=== PATIENT | female | born 1945 ===

== ENCOUNTER 2023-10-24 14:50 | Emergency (ER) | payer BC, SELFPAY ==
[2023-10-24] VITALS (11 sets, daily range): BP systolic 122–138; BP diastolic 49–71; PULSE 34–38; RESP 16; TEMP 36.8; O2SAT 91–95; BMI 24.2
--- NOTE | 2023-10-24 15:12 | XR_ITS ---
Patient: ELADIO NIELSON Facility:?[facility] Patient ID:?[id number] Site Patient ID:?[id number]. Site :?[id number] Study:?XRay-Chest 2 VIEW-10/24/2023 3:32:07 PM Ordering Physician:?DR. DE GUZMAN Final Report: INDICATION: Shortness of breath. TECHNIQUE: Two-view chest. FINDINGS: Cardiomegaly. Blunting of the costophrenic sulci bilaterally most likely secondary to pleural effusion more on the left. No evidence of pulmonary congestion. Possible infiltrate left lung base. IMPRESSION: 1. Possible infiltrates left lung base. 2. Bilateral pleural effusion more on the left. Dictated by Khris Howard MD @ 10/24/2023 4:11:28 PM Signed by:?Khris Howard MD @10/24/2023 4:11:28 PM (Electronic Signature)
[2023-10-24 15:19] LABS: Lactate* 1.6 mmol/L (0.5-1.9)
[2023-10-24 15:21] LABS: Basophils Absolute Auto 0.02 K/uL (0.00-0.30); Basophils Percent Auto 0.4 % (0.0-3.0); Eosinophils Absolute Auto 0.02 K/uL (0.00-0.50); Eosinophils Percent Auto 0.4 % (0.0-7.0); Hematocrit 35.8 % (33.0-51.0); Hemoglobin* 11.9 gm/dL (12.0-16.0); Immature Granulocytes Abs Auto 0.01 K/uL (0.00-0.30); Immature Granulocytes Pct Auto 0.2 %; Lymphocytes Percent Auto 13.2 % (20-44); Mean Corpuscular HGB Conc 33 gm/dL (32-36); Mean Corpuscular Hemoglobin 34 pg (26-34); Mean Corpuscular Volume 104 fL (80-100); Monocytes Percent Auto 10.4 % (0.0-11.0); Neutrophils Percent Auto 75.4 % (42.0-72.0); Platelet Count* 254 K/uL (140-440); RDW Coefficient of Variation % 13.7 % (11.5-15.5); Red Blood Count 3.46 m/uL (4.00-5.20); White Blood Count* 4.71 K/uL (4.50-11.00)
[2023-10-24 15:27] LABS: Slide Review Reflex No
--- NOTE | 2023-10-24 15:33 | ED.GENADULT ---
HPI - General Adult General Chief complaint: Weakness Stated complaint: short of breath, weakness Time Seen by Provider: 10/24/23 15:10 Source: patient Mode of arrival: ambulatory Limitations: no limitations History of Present Illness HPI narrative: 77-year-old female coming in today complaining of not feeling well for about 2 weeks. She can not quite put her finger on it but she just feels that something is not right. She denies headache, blurry vision. She denies any chest pain. She states that she has had shortness of breath for about 8 years now. She states that she does have a mild cough. She denies fevers or chills. She denies abdominal discomfort. She states that she is feeling slightly constipated so she took a stool softener yesterday. Denies diarrhea. She denies any urinary symptoms such as increased frequency, urgency or dysuria. Denies any blood in her stool or urine. She states that she has had no appetite but has been forcing herself to eat and drink. She denies feeling nauseated. She has not been vomiting. She denies any syncopal episodes. She denies any changes in her sleep habits. She denies any rashes that she is aware of. Patient does get her care at [facility]. She drinks a couple of sondra's with water every night. She does have a history of coronary artery disease status post stenting, atrial fibrillation, on anticoagulation therapy, hypothyroidism. She is also on sublingual nitro p.r.n., lisinopril, diltiazem, Lipitor, Eliquis, Synthroid. Appears that the patient had an echocardiogram done on 10/21/2023. This showed normal LV size, normal wall thickness and normal function with an EF of 65-70%. Right ventricular cavity mildly enlarged, severe biatrial enlargement, aortic valve is trileaflet and sclerotic with mild stenosis and no regurgitation, severe tricuspid regurgitation. There was no interval change from a year prior. Related Data Home Medications Medication Instructions Recorded Confirmed apixaban 2.5 mg tablet (Eliquis) 2.5 mg PO BID 03/05/22 03/05/22 apixaban 5 mg tablet (Eliquis) 5 mg PO BID 10/24/23 10/24/23 atorvastatin 40 mg tablet 40 mg PO DAILY 10/24/23 10/24/23 diltiazem HCl 120 mg 120 mg PO DAILY 10/24/23 10/24/23 capsule,extended release 24 hr levothyroxine 75 mcg tablet 75 mcg PO DAILY 10/24/23 10/24/23 lisinopril 5 mg tablet 5 mg PO DAILY 10/24/23 10/24/23 Previous Rx's Medication Instructions Recorded tacrolimus 0.1 % topical ointment 1 applic topical BID #60 grams 04/09/22 (Protopic) Allergies Allergy/AdvReac Type Severity Reaction Status Date / Time No Known Allergies Allergy Unverified 03/05/22 09:36 Review of Systems Status of ROS: Reports: 10 or more systems reviewed and unremarkable except as noted in History and below PFSH [facility] Surgical History Status post total knee replacement ?Z96.659 - Presence of unspecified artificial knee joint (ICD-10) Status post insertion of drug-eluting stent into right coronary artery for coronary artery disease ?Z95.5 - Presence of coronary angioplasty implant and graft (ICD-10) Social History Narrative: alcohol abuse Smoking Status: Never smoker Exam Narrative: Exam Narrative: Well-nourished well-developed elderly patient in no acute distress. Alert and oriented x3. Answers questions appropriately. Mood and affect are appropriate. Thoughts are goal oriented and rational. No tangential or magical thinking noted. Patient speaks in full sentences without needing to catch her breath. She is in no acute respiratory distress. She does not appear ill or toxic. Patient is bradycardic with a pulse in the 30s, however, blood pressure is stable at 122/65. HEENT: Normocephalic atraumatic. Pupils are equally round reactive to light. Extraocular muscles are intact. Conjunctivae are moist without any icterus noted. Moist mucous membranes. Posterior pharynx is normal. Neck is soft without any lymphadenopathy or thyromegaly. No masses are appreciated. Cardiovascular: Bradycardic, S1-S2 present without murmurs. Lungs: Clear to auscultation bilaterally no wheezes rhonchi or rales are appreciated. Patient takes deep breaths without any discomfort. Abdomen: Soft and nontender nondistended with normal bowel sounds. No guarding or rebound. Extremities: Bilateral lower extremities are without edema. Skin: Well perfused without any obvious rashes. Const: Vital Signs, click to edit/add: Vital Signs - 24 hr 10/24/23 15:05 10/24/23 15:38 Temperature 98.3 F Pulse Rate [Pulse Oximeter] 38 L Respiratory Rate 16 Blood Pressure [Ri ght Upper Arm] 122/65 Pulse Oximetry 95 92 Oxygen Delivery Me thod Room Air Course Course ED Course: Patient was placed on the billet cutter and pads were applied. EKG, read by me, shows hand idioventricular rhythm with a pulse of 36. IV is established. Consultation is done with Cardiology at [facility]: Dr. Vann recommends transfer for emergent pacemaker placement. He is concerned that the rhythm appears to be junctional rhythm with a ventricular escape beat which is unstable. He recommends starting dopamine at 1 mcg per kg per hour - this was started. Labs were drawn when the IV was placed: CBC was unremarkable. Sodium is low 122. IV fluids were also started at this time. Troponins elevated at 0.06, patient continues not to have any chest pain or shortness of breath that is new. Normal LFTs. Normal magnesium. Chest x-ray showing blunting bilaterally of the costophrenic angles consistent with pleural effusions, concern of a possible left-sided infiltrate. Vital Signs Vital signs: Initial Vital Signs Temperature 98.3 F 10/24/23 15:05 Temperature Source Temporal Artery Scan 10/24/23 15:05 Pulse Rate 38 L 10/24/23 15:05 Respiratory Rate 16 10/24/23 15:05 Blood Pressure 122/65 10/24/23 15:05 Blood Pressure Mean 84 10/24/23 15:05 Pulse Oximetry 95 10/24/23 15:05 Oxygen Delivery Method Room Air 10/24/23 15:05 Vital Signs Temperature 98.3 F 10/24/23 15:05 Pulse Rate 38 L 10/24/23 15:05 Respiratory Rate 16 10/24/23 15:05 Blood Pressure 122/65 10/24/23 15:05 Pulse Oximetry 95 10/24/23 15:05 Oxygen Delivery Method Room Air 10/24/23 15:05 Temperature 98.3 F 10/24/23 15:05 Pulse Rate 38 L 10/24/23 15:05 Respiratory Rate 16 10/24/23 15:05 Blood Pressure 122/65 10/24/23 15:05 Pulse Oximetry 92 10/24/23 15:38 Oxygen Delivery Method Room Air 10/24/23 15:05 Medications Administered Medications: Generic Name Dose Route Start Last Admin Trade Name Pamela PRN Reason Stop Dose Admin Dopamine HCl/Dextrose 400 mg in 250 mls @ 2.143 mls/hr 10/24/23 15:45 10/24/23 16:02 Dopamine 1600 Mcg/Ml Infusion IVPB 1 mcg/kg/min .TITRATE BELLA 2.14 mls/hr Administration Protocol 1 MCG/KG/MIN Sodium Chloride 500 mls @ 500 mls/hr 10/24/23 15:51 10/24/23 16:02 0.9 % Sodium Chloride 500 Ml IV 10/24/23 16:50 500 mls/hr .Q1H ONE Administration Medical Decision Making MDM Narrative Medical decision making narrative: 77-year-old female presenting with bradycardia and junctional rhythm and ventricular escape beats. Patient will be transferred to [facility] for further management. Medical Records Medical records reviewed: Yes I reviewed the patient's medical records Lab Data Lab results reviewed: Yes I reviewed the patient's lab results Labs: Lab Results 10/24/23 Range/Units 15:10 WBC 4.71 (4.50-11.00) K/uL RBC 3.46 L (4.00-5.20) m/uL Hgb 11.9 L (12.0-16.0) gm/dL Hct 35.8 (33.0-51.0) % MCV 104 H (80-100) fL MCH 34 (26-34) pg MCHC 33 (32-36) gm/dL RDW Coeff of Mely 13.7 (11.5-15.5) % Plt Count 254 (140-440) K/uL Neut % (Auto) 75.4 H (42.0-72.0) % Lymph % (Auto) 13.2 L (20-44) % Delta % (Auto) 10.4 (0.0-11.0) % Eos % (Auto) 0.4 (0.0-7.0) % Baso % (Auto) 0.4 (0.0-3.0) % Neut # (Auto) 3.60 (1.7-7.0) K/uL Lymph # (Auto) 0.60 L (0.90-2.90) K/uL Delta # (Auto) 0.50 (0.00-0.90) K/UL Eos # (Auto) 0.02 (0.00-0.50) K/uL Baso # (Auto) 0.02 (0.00-0.30) K/uL Abs Immat Gran (auto) 0.01 (0.00-0.30) K/uL Imm/Tot Granulo (auto) 0.2 % Sodium 122 L* (135-149) mmol/L Potassium 4.8 (3.6-5.1) mmol/L Chloride 95 L (96-114) mmol/L Carbon Dioxide 21 (20-32) mmol/L Anion Gap 6 L (7-15) mEq/L BUN 18 (7-30) mg/dL Creatinine 0.9 (0.5-1.5) mg/dL Estimated Creat Clear 33.84 Estimated GFR 66 ml/min Glucose 92 (60-115) mg/dL Lactate 1.6 (0.5-1.9) mmol/L Calcium 8.6 (8.4-10.6) mg/dL Magnesium 1.8 (1.5-2.6) mg/dL Total Bilirubin 0.7 (0.1-1.5) mg/dL Direct Bilirubin 0.4 (0.0-0.5) mg/dL AST 26 (12-35) U/L ALT 20 (4-35) U/L Alkaline Phosphatase 134 (40-150) U/L Troponin I 0.06 H* (0.01-0.04) ng/mL C-Reactive Protein 1.4 H (0.5-1.0) mg/dL NT-Pro-B Natriuret Pep 6940 pg/mL Total Protein 6.3 (6.0-8.3) g/dL Albumin 3.5 (3.3-5.0) g/dL Imaging Data Chest x-ray: Attestation: I have reviewed the pertinent imaging results. Radiologist's impression: TECHNIQUE: Two-view chest. FINDINGS: Cardiomegaly. Blunting of the costophrenic sulci bilaterally most likely secondary to pleural effusion more on the left. No evidence of pulmonary congestion. Possible infiltrate left lung base. IMPRESSION: 1. Possible infiltrates left lung base. 2. Bilateral pleural effusion more on the left. ECG Data Attestation: I personally reviewed and interpreted this ECG as follows: Discharge Plan Discharge Clinical Impression: Bradycardia Patient Disposition: [facility] Condition: Guarded Prescriptions: No Action Eliquis 2.5 mg tablet 2.5 mg PO BID atorvastatin 40 mg tablet 40 mg PO DAILY levothyroxine 75 mcg tablet 75 mcg PO DAILY diltiazem HCl 120 mg capsule,extended release 24hr 120 mg PO DAILY lisinopril 5 mg tablet 5 mg PO DAILY Eliquis 5 mg tablet 5 mg PO BID tacrolimus [Protopic] 0.1 % ointment 1 applic topical BID Qty: 60 0RF Follow Up/Referrals: Provider,Not a Local [Referring] - Stand Alone Forms: [employer]on[employer] Info Instructions
[2023-10-24 15:37] LABS: Chloride* 95 mmol/L (96-114)
[2023-10-24 15:38] LABS: Albumin* 3.5 g/dL (3.3-5.0)
[2023-10-24 15:39] LABS: Potassium* 4.8 mmol/L (3.6-5.1)
[2023-10-24 15:41] LABS: Alanine Aminotransferase* 20 U/L (4-35); Alkaline Phosphatase* 134 U/L (40-150); Anion Gap 6 mEq/L (7-15); Aspartate Amino Transferase* 26 U/L (12-35); Bilirubin Direct* 0.4 mg/dL (0.0-0.5); Bilirubin Total* 0.7 mg/dL (0.1-1.5); Blood Urea Nitrogen* 18 mg/dL (7-30); Carbon Dioxide* 21 mmol/L (20-32); Creatinine* 0.9 mg/dL (0.5-1.5); Est. Creatinine Clearance* 33.84; Estimated Glomerular Filt Rate 66 ml/min; Glucose* 92 mg/dL (60-115); Total Protein* 6.3 g/dL (6.0-8.3)
[2023-10-24 15:42] LABS: Calcium* 8.6 mg/dL (8.4-10.6); Magnesium* 1.8 mg/dL (1.5-2.6)
[2023-10-24 15:44] LABS: C Reactive Protein* 1.4 mg/dL (0.5-1.0)
[2023-10-24 15:47] LABS: Sodium* 122 mmol/L (135-149)
[2023-10-24 15:50] LABS: NT Pro B Type NatriureticPept* 6940 pg/mL
[2023-10-24 15:56] LABS: Troponin I* 0.06 ng/mL (0.01-0.04)
[2023-10-24] MEDS: 0.9 % SODIUM CHLORIDE 500 ML 500 ML IV (16:02)
[2023-10-24] MEDS: DOPAMINE 1600 mcg/ml infusion 400 MG/250 ML SOLUTION IVPB (16:02)
[2023-10-24 16:18] LABS: PCR FLU A Negative PCR FLU A (Negative); PCR FLU B Negative PCR FLU B (Negative); PCR RSV Negative PCR RSV (Negative); SARS PCR* Negative SARS-CoV-2 (Negative)
== END 2023-10-24 16:26 | disposition short-term general hospital (02) ==
PROVIDERS: Emergency Provider Family Medicine; PCP Student in an Organized Health Care Education/Training Program
DX: R00.1 Bradycardia, unspecified (principal)
CPT/HCPCS: 36415; 71046; 80048; 80076; 83605; 83735; 83880; 84443; 84484; 85025; 86140; 87631; 93005; 94761; 96374; 99285; 99291; J1265; J7030

== ENCOUNTER 2023-10-24 16:10 | Outpatient (CLI) | payer BC, SELFPAY | END 2023-10-24 16:11 | disposition home or self-care (01) | LOC: AMB 10-27 12:03 | PROVIDERS: PCP Student in an Organized Health Care Education/Training Program; Visit Provider Emergency Medicine Emergency Medical Services | DX: R00.1 Bradycardia, unspecified (principal); J90 Pleural effusion, not elsewhere classified | CPT/HCPCS: A0425; A0427 ==

== ENCOUNTER 2024-11-19 09:27 | Emergency (ER) | payer BC, SELFPAY ==
--- OUTSIDE RECORDS SUMMARY | 2024-11-19 09:29 | XMS_ITS | Encounter Summary ---
Author Organization [facility] Address [address] [place] [address] Care Team Providers Care Note Specialist Name Role Phone Mabel Baumann PA-C Primary Care Provider Encounter Details Date Type Department Care Team (Late st Contact Info) Description 01/04/2019 Consent for Procedure/Treatme nt [facility] Department INFORMED CONSENT RECORD Social History Tobacco Use Types Packs/Day Years Used Date Smoking Tobacco: Never Smokeless Tobacco: Never Comments Unknown Sex and Gender Information Value Date Recorded Sex Assigned at Not on file Legal Sex Female 4:36 AM CDT Gender Identity Not on file Sexual Orientation Not on file documented as of this encounter Plan of Treatment Not on file documented as of this encounter Visit Diagnoses Not on filedocumented in this encounter Care Teams Note Specialist Relationship Specialty Start Date End Date Mabel Baumann PA-C PCP - General Physician Special Skills Officer 12/29/18 documented as of this encounter
--- OUTSIDE RECORDS SUMMARY | 2024-11-19 09:30 | XMS_ITS | Encounter Summary ---
Author Organization [facility] Address [address] [place] [address] Care Team Providers Care Electronic Equipment Installer Name Role Phone Mabel Baumann PA-C Primary Care Provider Encounter Details Date Type Department Care Team (Late st Contact Info) Description 09/18/2014 Outside Hospital External to External, [place] [address] OPERATIVE REPORT Social History Tobacco Use Types Packs/Day Years Used Date Smoking Tobacco: Never Assessed Comments Unknown Sex and Gender Information Value Date Recorded Sex Assigned at Not on file Legal Sex Female 4:36 AM CDT Gender Identity Not on file Sexual Orientation Not on file documented as of this encounter Plan of Treatment Not on file documented as of this encounter Visit Diagnoses Not on filedocumented in this encounter Care Teams Electronic Equipment Installer Relationship Specialty Start Date End Date Mabel Baumann PA-C PCP - General Physician Computer Graphics Illustrator 12/29/18 documented as of this encounter
--- OUTSIDE RECORDS SUMMARY | 2024-11-19 09:30 | XMS_ITS ---
Author Organization [facility] [employer] [facility] Care Team Providers Care Clothing Sales Assistant Name Role Phone Le Emerson Unavailable Unavailable Ed Leggett Unavailable Unavailable Detert, Tarsha Unavailable Unavailable Allergies and adverse reactions No Known Allergies Care Team Name Role Address Phone Organization Dates Ed Leggett PCP [address], [address], [place], [place], [facility], [place] (Office): [facility] 09/21/2014 - 09/26/2014 Le Emerson Attending Physician Geneena [address] [place] [address] [address], [place], [address] [place] [address] (Office): : [facility] 09/21/2014 - 09/26/2014 Tarsha Esteban Attending Physician [address], [address], [facility] 09/21/2014 - 09/26/2014 Immunizations Immunization Status Vaccine Details Vaccine Code CodeSystem Date Notes Pneumovax Dose 1 completed cre ated date: 09/20/2014 administere d date: 11/18/2010 TB 2 Step Mantoux Skin Test completed tuberculin skin test; unspecified formulation lotNumber: [id number] expiry: 12/14/2015 Mfg: [employer] Given 0.1 ml Right Forearm intradermally Step 1 of Multi-step with next step required 98 CVX created date: 09/22/2014 consent date: 09/22/2014 administere d date: 09/22/2014 Mental Status Section Date Assessment Total Score Description 09/26/2014 BIMS 15 cognitively int act PHQ-9 04 minimal depress ion 09/25/2014 BIMS 15 cognitively int act PHQ-9 04 minimal depress ion Reason for Referral No Reasons for Referral Entered Social History Social History Observation Description Start Date End Date Code Code System Current Smoking Status Tobacco smoking consumption unknown [id number] SNOMED CT Sex Assigned At Female 1945 52982-1 [facility] Vital Signs Code Code System Vitals Name Values and Units Timing Information 91178-3 [facility] Pain Level Value=6.0 09/26/2014 9279-1 [facility] Respiratory Rate Value=12.0 Units=/m in 09/22/2014 8462-4 [facility] Blood Pressure-Diastolic Value=70 Un its=mmHg 09/22/2014 8480-6 [facility] Blood Pressure-Systolic Lxetr=837 Un its=mmHg 09/22/2014 8310-5 [facility] Body Temperature Value=97.8 Units= F 09/22/2014 8867-4 [facility] Heart rate Value=74.0 Units=/min 02/2015 13426-6 [facility] O2 % dC Oximetry Value=98.0 Units= % 09/22/2014 72538-6 LOINC Weight Igwwr=691.5 Units=Lbs 02/2015 8302-2 LOINC Height Value=62.0 Units=Inches 09/22/2014
--- OUTSIDE RECORDS SUMMARY | 2024-11-19 09:30 | XMS_ITS | Encounter Summary ---
Author Organization [facility] Address [address] [place] [address] Care Team Providers Care Cnc Laser Operator Name Role Phone Mabel Baumann PA-C Primary Care Provider Encounter Details Date Type Department Care Team (Late st Contact Info) Description 12/09/2018 Correspondence External to External, [place] [address] IMPLANTS Social History Tobacco Use Types Packs/Day Years [...] on filedocumented in this encounter Care Teams Cnc Laser Operator Relationship Specialty Start Date End Date Mabel Baumann PA-C PCP - General Physician Hydro Plant Site Manager 12/29/18 documented as of this encounter
--- OUTSIDE RECORDS SUMMARY | 2024-11-19 09:30 | XMS_ITS | Clinical Summary ---
Author Organization [facility] Address [address] [place] [id number] Care Team Providers Care Hoop Rolls Operator Name Role Phone Dali Norbert Ware Unavailable [phone] Oscar Lara MD Unavailable [phone] Grayson Chauhan MD Unavailable Tracey Amador Primary Care Provider [phone] Allergies Active Allergy Reactions Criticality Noted Date Comments Digoxin Stomach Upset 11/11/2022 & fatigue Medications CENTRUM SILVER TAB take 1 tablet by oral route once daily 0 07/19/20 07 Active calcium with vitamin D3 (OS-NETTIE 500 + D) tablet Take 1 tablet by mouth once daily with a meal. Active apixaban (Eliquis) 5 mg tabletIndications: Longstanding persistent atrial fibrillation (HC) Take 1 Tablet (5 mg) by mouth two times daily. 180 Tablet 3 09/01/19 25 Active atorvastatin (LIPITOR) 40 mg tabletIndications: ASHD (arteriosclerotic heart disease) Take 1 Tablet (40 mg) by mouth at bedtime. 90 Tablet 3 09/01/19 25 Active levothyroxine (SYNTHROID) 75 mcg tabletIndications: Other specified hypothyroidism Take 1 Tablet (75 mcg) by mouth once daily. 90 Tablet 3 09/01/19 25 Active nitroglycerin (NITROSTAT) 0.4 mg sublingual tabletIndications: ASHD (arteriosclerotic heart disease) Place 1 Tablet (0.4 mg) under the tongue every 5 minutes if needed for Chest Pain. 25 Tablet 1 09/01/19 25 Active lisinopriL (PRINIVIL; ZESTRIL) 5 mg tabletIndications: Hypertension Take 1 Tablet (5 mg) by mouth once daily. 90 Tablet 2 10/05/19 25 Active dilTIAZem CD 180 mg extended release 24 hr capsuleIndications :Longstanding persistent atrial fibrillation (HC) Take 1 Capsule (180 mg) by mouth once daily. 90 Capsule 11/07/19 25 Active calcitonin salmon (200 units per actuation) nasal 200 unit/actuation nasal sprayIndications:C ompression fracture of T12 vertebra, initial encounter (HC) Inhale 1 [place] into affected nostril(s) once daily. Alternating nostrils daily. 3.7 mL 11/08/19 25 Active dilTIAZem CD (CARDIZEM CD) 120 mg extended release 24 hr capsuleIndications :Longstanding persistent atrial fibrillation (HC) Take 1 Capsule (120 mg) by mouth once daily. 90 Capsule 3 09/01/19 25 025 Discontin ued(*Medi cation adjustmen t) Active Problems Problem Noted Date Diagnosed Date Symptomatic bradycardia 10/24/2023 Complete heart block 10/24/2023 Arthritis of left knee 06/18/2023 Depression, major, single episode, mild 06/14/20 23 Pseudopolyposis of colon wit hout complication, unspecified part of colon 02/25/2023 Assessment & Plan (02/25/2023 12:58 PM CDT): Chart update only. CHELSEA Pratt .................... 02/25/2023 12:58 PM Trochanteric bursitis of left hip 12/25/2020 Overview (12/25/2020): December 2020: left Greater Trochanteric Bursa hip injection. Spinal stenosis of lumbar re gion with neurogenic claudication 12/14/2019 Overview (05/21/2021): May 2021: Left TF Epidural steroid injection by Dr. Marshall. Mitral valve insufficiency 02/28/2019 Atrial fibrillation 12/20/2018 Overview (11/11/2022): 10-20-2022: Her atrial fibrillation was previously managed with antiarrhythmics including amiodarone and beta-blockers and an attempt was made to regain sinus rhythm but it failed. She also felt lightheaded with beta-blockers and those have been discontinued in the past as per previous notes. Currently she is taking nothing for rate control tachycardia. 11-11-2022: digoxin discontinued -->fatigue and stomach upset ASHD (arteriosclerotic heart disease) 12/15/2016 NSTEMI (non-ST elevated myocardial infarction) 0 12/09/2016 Overview (12/15/2016): Stent to proximal RCA 12/10/16. Family hx osteoporosis 07/30/2009 Arthritis, hip 07/30/2009 Diverticulosis of colon (without mention of hemo rrhage) 10/02/2008 Stricture of intestine 10/02/2008 Unspecified arthropathy, hand 07/19/2007 Unspecified hypothyroidism 07/19/2007 Unspecified essential hypertension 07/19/2007 Senile cataract, unspecified Osteopenia Overview (12/22/2017): Bone density December 2017, worsening osteopenia. Recheck 2-3 years. Resolved Problems Problem Noted Date Diagnosed Date Resolved Date Status post partial colectomy 10/02/2008 11/07/2013 Ileitis 10/02/2008 09/29/2011 IBS (irritable bowel syndrome) 11/07/2013 Anemia 11/07/2013 Overview (07/24/2008): NOS Encounters Date Type Department Care Team Description 11/16/2024 Nurse Triage [facility] [address] [place] [address] Tracey Amador PA Ankle Pain/problem (Bilateral Ankle Edema); Breathing Problem (SOB with exertion) 11/08/2024 Refill [facility] [address] [place] [address] Tracey Amador PA Refill Request (Nitroglycerin) 11/07/2024 12:47 PM CDT - 11/07/2024 11:59 PM CDT Hospital Encounter [facility] [address] [place] [address] Tracey Amador PA Compression fracture of L3 lumbar vertebra, closed, initial encounter (HC); Compression fracture of T12 vertebra, initial encounter (HC) 11/07/2024 12:46 PM CDT Hospital Encounter [facility] MRI/CT [address] [place] [address] 11/07/2024 Telephone [facility] [address] [place] [address] Tracey Amador PA Results 11/06/2024 10:30 AM CDT Ancillary Procedure [facility] [address] [place] [address] 11/06/2024 9:55 AM CDT Office Visit [facility] [address] [place] [address] Tracey Amador PA Back Pain (Lower back pain. Sx started about a month ago. When moving getting an extreme pain. With some Hip pain, some radiated pain that stays in upper legs. Increased Weakness. No falls or Jarring) 11/06/2024 Telephone [facility] [address] [facility] [address] [place] [phone] Shyann Guthrie RN Device Check 11/06/2024 Travel 11/03/2024 Telephone [facility] [address] [place] [address] Tracey Amador PA Questions (back pain) 10/16/2024 Nurse Triage [facility] [address] [place] [address] Tracey Amador PA Back Pain 10/04/[address] [address] Tracey Amador PA Refill Request (Lisinopril) 09/01/2024 11:10 AM COUNTY EXTENSION AGENT Office Visit [address] [address] Tracey Amador PA Medicare ANNUAL (subsequent) Visit (78 yrs ) 09/01/2024 Travel 08/23/2024 Refill [facility] [address] [place] [place] [address] Tracey Amador PA Refill Request (Diltiazem Cd) 08/23/2024 Refill [facility] [address] [facility] [place] [address] Tracey Amador PA Refill Request (Atorvastatin) from Last 3 Months Immunizations Immunization Administration Dates Next Due AMB INFLUENZA IIV3 (AGE 65+ YRS) PF (Flu Clinic Only) 05/19/2018 COVID-19 vaccine (AchieveMint-Bio NTech 30mcg/0.3mL) 12YO+ LUIZA-SUCROSE PF, MDV 04/09/2022 COVID-19 vaccine (Pfizer-Bio NTech 30mcg/0.3mL) PF, MDV 05/29/2021,10/19/2020,09/28/2020 Influenza Virus, Unspecified 05/19/2018 Influenza, High-dose Inactivated 05/25/2024,06/17,05/21/2015 Influenza, High-dose Quadriv alent Inactivated 06/03/2023,05/29/2021 Influenza, IIV3 (Age >=3 years) 04/30/20 12,06/14/2011,05/09/2011,2009,07/30/2009,07/02/2007,06/07/2006 Influenza, Inactivated AIIV4 (Age 65+ Years) Preserv Free 06/16/2022,06/14/2020 Influenza, Inactivated IIV3 (Age 65+ Years) Preserv Free 06/23/2019,07/27/2017 Pneumococcal Poly,23-Valent (Pneumovax) 11/18/2010 Pneumococcal conj 13-Valent (Prevnar 13) 11/27/2015 Td (Age >=7 Years) 05/30/1999 Tdap 07/24/2008 Tuberculin Skin Test, Unspecified 09/22/2014 Zoster (Shingrix-RZV, recombinant) 04/24/2021 Zoster (Zostavax-ZVL, live) 01/16/2008 Family History Medical History Relation Name Comments Sleep apnea Brother 1 in his sle ep at 69 Osteoporosis Brother 2 Heart Disease Father [place] at 49 Cancer-colon Maternal Grandmother Heart Disease Mother pacemaker Good Health Sister 2 Good Health Son 3 Good Health Son 4 Anesthesia Problem No Family History Blood Disease No Family History Cancer-breast No Family History Relation Name Status Comments Brother 1 (Age 69) in hi s sleep Brother 2 Father (Age 49) mi Maternal Grandmother Mother (Age 85) Sister 1 Alive Sister 2 Son 1 Alive Son 2 Alive Son 3 Son 4 Social History Tobacco Use Types Packs/Day Years Used Date Smoking Tobacco: Never Smokeless Tobacco: Never Tobacco Cessation:Counseling Given: Yes Alcohol Use Standard Drinks/Week Comments Yes 7 (1 standard drink = 0.6 oz pur e alcohol) 1-2 glass of wine daily PHQ-2 Answer Date Recorded PHQ-2 TOTAL SCORE 1 09/01/2024 Social Connections Answer Date Recorded Do you often feel lonely or isolated from those around you? 0 09/01/2024 Financial Resource Strain Answer Date R ecorded Difficulty of Paying Living Expenses 3 09/01/2024 Difficulty of Paying Living Expenses Not on file 09/01/2024 Food Insecurity Answer Date Recorded Do you worry your food will run out before you are able to buy more? 1 09/01/2024 Transportation Needs Answer Date Record ed Does lack of transportation keep you from medica l appointments? 1 09/01/2024 Does lack of transportation keep you from work, meetings or getting things that you need? 1 09/01/2024 Housing Stability Answer Date Recorded What is your housing situation today? 1 09/01/2024 Utilities Answer Date Recorded Do you have trouble paying f or utilities (for example, heat, electricity, water, phone)? 1 09/01/2024 Comments No Sex and Gender Information Value Date Recorded Sex Assigned at Not on file Legal Sex Female 5:24 AM COUNTY EXTENSION AGENT Gender Identity Not on file Sexual Orientation Not on file Occupation Industry Job Start Date Job End Date cook Not on file Not on file Not on file Travel History Travel Start Travel End [place] 10/09/2024 11/06/2024 Obstetrics History Para Term AB IAB SAB Ectopic Multiple Livin g Live Births 2 2 2 Date Outcome GA Total Labor Labor/2nd/3rd Weight Sex Type Anes PTL Inga A1 A5 Name Clin Para Para Last Filed Vital Signs Vital Sign Reading Time Taken Comments Blood Pressure 118/68 11/06/2024 10:02 AM CDT Pulse 102 11/06/2024 10:02 AM CDT Temperature 36.4 C (97.6 F) 09/01/2024 11:19 AM COUNTY EXTENSION AGENT Respiratory Rate 14 10/27/2023 7:58 AM CDT Oxygen Saturation 98% 11/06/2024 10:02 AM CDT Inhaled Oxygen Concentration - - Weight 57.6 kg (127 lb) 11/06/2024 10:02 AM CDT Height 156 cm (5' 1.42) 09/01/2024 11:19 AM COUNTY EXTENSION AGENT Body Mass Index 23.67 09/01/2024 11:19 AM COUNTY EXTENSION AGENT Plan of Treatment Upcoming Encounters Date Type Department Care Team (Late st Contact Info) Description 01/02/2025 1:30 PM CDT Office Visit [facility] [address] [place] [phone] Ed Bowie MD [facility] [address] [place] [address] 01/04/2025 10:00 AM CDT Office Visit [facility] [address] [place] [address] Albert Marshall MD [address] [place] [address] 02/20/2025 3:00 PM CDT Cardiac Device Check [facility] [address] [place] [phone] Health Maintenance Due Date Last Done Comments Tetanus booster 07/24/2018 07/24/2008, 05/30/1999 RSV vaccine for adults or (1 - 1-dose 75+ series) 2020 Zoster (shingles) series for age 50+ (3 of 3) 06/19/2021 04/24/2021, 01/16/2008 COVID-19 vaccine series ( season) 2024 05/25/2024, 06/03/2023, 04/09/2022, Additional history exists BMI (ht and wt on same day) for age 18+ 09/01/2025 09/01/2024, 06/14/2023, 04/09/2022, Additional history exists Depression screening for age 12+ 09/01/2025 09/01/2024, 12/03/2023, 06/18/2023, Additional history exists Medicare Wellness for age 65+ 09/02/2025, 06/14/2023, 04/09/2022, Additional history exists Tdap Completed 07/24/2008 Pneumococcal series for age 50+ Completed 6, 11/18/2010 DEXA/DXA scan for age 65+ Completed 2017, 10/06/2011, 08/06/2009 Hepatitis C screening for ag e 18-79 Completed 02/02/2020 Influenza Vaccine Completed 05/25/2024, , 06/14/2020, Additional history exists Medical Devices Implanted Type Area Machine Sand Mixer Device Identifier Shelf Expiration Date Model / Serial / Lot Log [id number] - Marlena Mta3uo Lens Iol - 1 - Lens Iol 13.5 [id number] Surgical Implanted:Qty: 1 on 08/03/2013 at [facility] Right: Eye [employer] 09/15/2017 [id number] / [id number] / Procedures Procedure Name Priority Date/Time Associated Diagnosis Comments MR SPINE LUMBAR WO PRITI 11/07/2024 2: 06 PM CDT Compression fracture of L3 lumbar vertebra, closed, initial encounter (HC) Compression fracture of T12 vertebra, initial encounter (HC) XR SPINE LUMBAR 3 VIEWS STAT 11/06/2024 10:40 AM CDT Acute midline low back pain without sciatica LIPID PANEL W REFLEX MEASURED LDL Routine 09/01/2024 12:06 PM COUNTY EXTENSION AGENT ASHD (arteriosclerotic heart disease) TSH Routine 09/01/2024 12:06 PM COUNTY EXTENSION AGENT Other specified hypothyroidism BASIC METABOLIC PANEL Routine 09/01/2024 12:06 PM COUNTY EXTENSION AGENT Hypertension ANTI HCV Routine 02/02/2020 9:32 AM CDT Need for hepatitis C screening test XR DXA BONE DENSITY 2 SITES AXIAL Routine 12/21/2017 3:34 PM CDT Asymptomatic postmenopausal state from Last 3 Months or Most Recently Relevant to Health Maintenance Results * MR SPINE LUMBAR WO (11/07/2024 2:06 PM CDT) Anatomical Region Laterality Modality Spine, LUMBAR SPINE Magnetic Res onance, Other 11/07/2024 2:27 PM CDT Impressions 11/07/2024 2:27 PM CDT 1. Focal lumbar scoliotic curvature convex to the left with low lumbar curve convex to the right. 2. In the sagittal plane, degenerative grade 1-2 anterolisthesis of L4 on L5. 3. New subacute compression fracture of the T12 vertebral body. No retropulsion of fracture fragments. 4. Mild chronic appearing loss of height of L3. 5. No other fractures. 6. Lumbar spondylosis 7. At L2-3, mild narrowing of the spinal canal and bilateral neural foramina 8. At L3-4, mild narrowing of the bilateral neural foramina 9. At L4-5, moderate to severe narrowing of the spinal canal. Impingement of the traversing L5 nerve roots. Mild right and moderate to severe left neural foraminal narrowing. Potential impingement of the exiting left L4 nerve root Dictated by Maverick Gruber MD @ 11/07/2024 2:27:23 PM (Electronically Signed) Narrative 11/07/2024 2:27 PM CDT For Patients: As a result of the Century Cures Act, medical imaging exams and procedure reports are released immediately into your electronic medical record. You may view this report before your referring provider. If you have questions, please contact your health care provider. INDICATION: Compression fracture. Comparison 04/07/2021. Technique Sagittal T1, T2, and STIR sequences. Axial T1 and T2 weighted sequences. FINDINGS: Focal lumbar scoliotic curvature convex the left and lower lumbar curve convex the right. In the sagittal plane, degenerative grade 1-2 anterolisthesis of L4 on L5 measures approximately 9 mm. Compared to the previous exam, there is new mild, approximately 20 30 percent loss of height of the T12 vertebral body with marrow edema along the inferior endplate. Findings consistent with the recent, likely subacute compression fracture. No retropulsion of fracture fragments. There is mild but chronic appearing loss of height of the L3 vertebral body with approximate 10-20 percent loss of height. No retropulsion of fracture fragments. No other fractures. No ligamentous injury. No suspicious osseous lesions. Normal conus terminates at L1-2. T9-10 T10-11: Disc generation. No spinal canal neural foraminal narrowing. T11-12: Disc degeneration and loss disc height. Diffuse disc bulge. No narrowing of spinal canal. Mild narrowing of the right neural foramen. No narrowing of the left neural foramen. T12-L1: Disc degeneration. No narrowing of the spinal canal. Mild narrowing of bilateral foramina. L1-2: No spinal canal or neural foraminal narrowing. L2-3: Disc degeneration and posterior disc bulge. Flattening of ventral thecal sac. Mild narrowing of spinal canal. Mild narrowing of bilateral foramina. Mild facet arthropathy. L3-4: Disc degeneration. Diffuse disc bulge. No narrowing of spinal canal. Mild narrowing of the bilateral foramina. L4-5: Grade 1-2 anterolisthesis. Disc degeneration unroofed posterior disc bulge. Combined with facet arthropathy, there is moderate severe narrowing of the spinal canal. Bilateral subarticular recess narrowing and impingement of the traversing L5 nerve roots. Oblique orientation of the bilateral neural foramina with mild right and moderate severe left neural foraminal narrowing. Potential impingement of the exiting left L4 nerve root. L5-S1: Posterior disc bulge. No narrowing of spinal canal. No impingement of the traversing S1 nerve roots. No neural foraminal narrowing. Moderate facet arthropathy. Degenerative changes of the SI joints. Normal paraspinal soft tissues. Right renal cyst. Multiple tiny gallstones. Procedure Note Maverick Gruber MD, PhD - 11/07/2024 For Patients: As a result of the Cures Act, medical imagingexams and procedure reports are released immediately into your electronicmedical record. You may view this report before your referring provider.If you have questions, please contact your health care provider. INDICATION: Compression fracture. Comparison 04/07/2021. Technique Sagittal T1, T2, and STIR sequences. Axial T1 and T2 weightedsequences. FINDINGS: Focal lumbar scoliotic curvature convex the left and lower lumbar curveconvex the right. In the sagittal plane, degenerative grade 1-2 anterolisthesis of L4 on [id number] approximately 9 mm. Compared to the previous exam, there is new mild, approximately 20 30percent loss of height of the T12 vertebral body with marrow edema alongthe inferior endplate. Findings consistent with the recent, likelysubacute compression fracture. No retropulsion of fracture fragments. There is mild but chronic appearing loss of height of the L3 vertebralbody with approximate 10-20 percent loss of height. No retropulsion offracture fragments. No other fractures. No ligamentous injury. No suspicious osseous lesions. Normal conus terminates at L1-2. T9-10 T10-11: Disc generation. No spinal canal neural foraminalnarrowing. T11-12: Disc degeneration and loss disc height. Diffuse disc bulge. Nonarrowing of spinal canal. Mild narrowing of the right neural foramen. Nonarrowing of the left neural foramen. T12-L1: Disc degeneration. No narrowing of the spinal canal. Mildnarrowing of bilateral foramina. L1-2: No spinal canal or neural foraminal narrowing. L2-3: Disc degeneration and posterior disc bulge. Flattening of ventralthecal sac. Mild narrowing of spinal canal. Mild narrowing of bilateralforamina. Mild facet arthropathy. L3-4: Disc degeneration. Diffuse disc bulge. No narrowing of spinal canal.Mild narrowing of the bilateral foramina. L4-5: Grade 1-2 anterolisthesis. Disc degeneration unroofed posterior discbulge. Combined with facet arthropathy, there is moderate severe narrowingof the spinal canal. Bilateral subarticular recess narrowing andimpingement of the traversing L5 nerve roots. Oblique orientation of thebilateral neural foramina with mild right and moderate severe left neuralforaminal narrowing. Potential impingement of the exiting left L4 nerveroot. L5-S1: Posterior disc bulge. No narrowing of spinal canal. No impingementof the traversing S1 nerve roots. No neural foraminal narrowing. Moderatefacet arthropathy. Degenerative changes of the SI joints. Normal paraspinal soft tissues. Right renal cyst. Multiple tiny gallstones. IMPRESSION: 1. Focal lumbar scoliotic curvature convex to the left with low lumbarcurve convex to the right. 2. In the sagittal plane, degenerative grade 1-2 anterolisthesis of L4 onL5. 3. New subacute compression fracture of the T12 vertebral body. Noretropulsion of fracture fragments. 4. Mild chronic appearing loss of height of L3. 5. No other fractures. 6. Lumbar spondylosis 7. At L2-3, mild narrowing of the spinal canal and bilateral neuralforamina 8. At L3-4, mild narrowing of the bilateral neural foramina 9. At L4-5, moderate to severe narrowing of the spinal canal. Impingementof the traversing L5 nerve roots. Mild right and moderate to severe leftneural foraminal narrowing. Potential impingement of the exiting left [id number] root Dictated by Maverick Gruber MD @ 11/07/2024 2:27:23 PM (Electronically Signed) Tracey TRAN MR Final Res ult * XR SPINE LUMBAR 3 VIEWS (11/06/2024 10:40 AM CDT) Anatomical Region Laterality Modality LUMBAR SPINE Computed Radiogr aphy 11/06/2024 10:5 2 AM CDT Impressions 11/06/2024 10:52 AM CDT 1. Chronic appearing moderate T12 superior endplate compression deformity with approximately 20 percent loss of anterior vertebral body height. 2. Unchanged mild chronic L3 superior endplate compression deformity. 3. Diffuse osteopenia, multilevel thoracolumbar spondylosis and incidental findings described above. Dictated by Lalit Denson MD @ 11/06/2024 10:52:58 AM (Electronically Signed) Narrative 11/06/2024 10:52 AM CDT For Patients: As a result of the 21st Century Cures Act, medical imaging exams and procedure reports are released immediately into your electronic medical record. You may view this report before your referring provider. If you have questions, please contact your health care provider. INDICATION: Acute midline low back pain without sciatica. COMPARISON: 01/25/2023 TECHNIQUE: 3 views. FINDINGS: Diffuse osteopenia. Chronic grade 2 anterior spondylolisthesis of L4 on L5. Chronic appearing moderate T12 superior endplate compression deformity with approximately 20 percent loss of anterior vertebral body height. Unchanged mild chronic L3 superior endplate compression deformity. Advanced disc degeneration at T11-T12, L3-L4 and L4-L5. Redemonstration of a 19 mm right paraspinal calcification which may represent evidence of nephrolithiasis. A cardiac conduction device lead is noted on the lateral view of the upper lumbar spine. Pelvic chain sutures are also again noted. Diffuse chronic aortoiliac atherosclerotic arterial calcifications. Procedure Note Lalit Denson MD - 11/06/2024 For Patients: As a result of the Cures Act, medical imagingexams and procedure reports are released immediately into your electronicmedical record. You may view this report before your referring provider.If you have questions, please contact your health care provider. INDICATION: Acute midline low back pain without sciatica. COMPARISON: 01/25/2023 TECHNIQUE: 3 views. FINDINGS: Diffuse osteopenia. Chronic grade 2 anterior spondylolisthesis of L4 on L5. Chronic appearing moderate T12 superior endplate compression deformitywith approximately 20 percent loss of anterior vertebral body height.Unchanged mild chronic L3 superior endplate compression deformity. Advanced disc degeneration at T11-T12, L3-L4 and L4-L5. Redemonstration of a 19 mm right paraspinal calcification which mayrepresent evidence of nephrolithiasis. A cardiac conduction device lead isnoted on the lateral view of the upper lumbar spine. Pelvic chain suturesare also again noted. Diffuse chronic aortoiliac atherosclerotic arterialcalcifications. IMPRESSION: 1. Chronic appearing moderate T12 superior endplate compression deformitywith approximately 20 percent loss of anterior vertebral body height. 2. Unchanged mild chronic L3 superior endplate compression deformity. 3. Diffuse osteopenia, multilevel thoracolumbar spondylosis and incidentalfindings described above. Dictated by Lalit Denson MD @ 11/06/2024 10:52:58 AM (Electronically Signed) us Tracey TRAN GENERAL IMAGING Final Res ult * LIPID PANEL W REFLEX MEASURED LDL (09/01/2024 12:06 PM COUNTY EXTENSION AGENT) CHOLESTEROL, TOTAL 166 <200 mg/dL [facility] HDL CHOLESTEROL 90 > OR = 50 mg/dL [facility] TRIGLYCERIDES 82 <150 mg/dL [facility] LDL-CHOLESTEROL 60 mg/dL (calc) [facility] Comment: Reference range: <100 Desirable range <100 mg/dL for primary prevention; <70 mg/dL for patients with CHD or diabetic patients with > or = 2 CHD risk factors. LDL-C is now calculated using the Deonna calculation, which is a validated novel method providing better accuracy than the Friedewald equation in the estimation of LDL-C. Jamil BRANTLEY et al. OLIVERIO. 2013;310(20): 5812-6497 (http://education.[employer]/faq/OXB012) CHOL/HDLC RATIO 1.8 <5.0 (calc) [facility] NON HDL CHOLESTEROL 76 <130 mg/dL (calc) [facility] Comment: For patients with diabetes plus 1 major ASCVD risk factor, treating to a non-HDL-C goal of <100 mg/dL (LDL-C of <70 mg/dL) is considered a therapeutic option. Blood BLOOD SPECIMEN / Unknown 09/01/2024 12:06 PM COUNTY EXTENSION AGENT 09/01/2024 12:06 PM COUNTY EXTENSION AGENT Tracey TRAN CHEMISTRY Final Res ult [employer] [facility] [address] [place] [address], [facility] [address] [place] [address] * TSH (09/01/2024 12:06 PM COUNTY EXTENSION AGENT) TSH 0.77 0.40 - 4.50 mIU/L [facility] Blood BLOOD SPECIMEN / Unknown 09/01/2024 12:06 PM COUNTY EXTENSION AGENT 09/01/2024 12:06 PM COUNTY EXTENSION AGENT us Tracey TRAN CHEMISTRY Final Res ult [facility] [address] [place] [address], [place] [phone] [facility] [address] [place] [address] * (ABNORMAL) BASIC METABOLIC PANEL (09/01/2024 12:06 PM COUNTY EXTENSION AGENT) [facility] GLUCOSE 93 65 - 99 mg/dL [facility] Comment: Fasting reference interval UREA NITROGEN (BUN) 9 7 - 25 mg/dL [facility] CREATININE 0.72 0.60 - 1.00 mg/dL [facility] EGFR 86 > OR = 60 mL/min/1. 73m2 [facility] BUN/CREATININE RATIO SEE NOTE: 6 - 22 (calc) [facility] Comment: Not Reported: BUN and Creatinine are within reference range. SODIUM 135 135 - 146 mmol/L [facility] POTASSIUM 5.4(H) 3.5 - 5.3 mmol/L [facility] CHLORIDE 99 98 - 110 mmol/L [facility] CARBON DIOXIDE 27 20 - 32 mmol/L [facility] ELECTROLYTE BALANCE 9 7 - 17 mmol/L (calc) [facility] CALCIUM 9.3 8.6 - 10.4 mg/dL [facility] Blood BLOOD SPECIMEN / Unknown 09/01/2024 12:06 PM COUNTY EXTENSION AGENT 09/01/2024 12:06 PM COUNTY EXTENSION AGENT Tracey TRAN CHEMISTRY Final Res ult [employer] [facility] [address] [place] [address], [place] [phone] [facility] [address] [place] [address] * ANTI HCV (02/02/2020 9:32 AM CDT) HEPATITIS C ANTIBODY Non-React kaylynn Non-React kaylynn 02/02/2020 6:[address] [facility] Comment:Antibodies to HCV no t detected; does not exclude the possibility of exposure to HCV. Blood BLOOD SPECIMEN / Unknown Venipuncture / Unknown 02/02/2020 9:32 AM CDT 02/02/2020 9:32 AM CDT us Mabel TRAN SEND OUTS Final Resu lt [facility] [employer] [facility] [address] [place] [address], * XR DXA BONE DENSITY 2 SITES AXIAL (12/21/2017 3:34 PM CDT) Anatomical Region Laterality Modality Spine, HIPS, HIPL, HIPR Other Mabel TRAN DEXA Final Resu lt from Last 3 Months or Most Recently Relevant to Health Maintenance Insurance MEDICARE PART A HB ONLY [facility] [place] Member Subscriber Plan / Payer (Ef fective 2023-Present) Name:Adele Stahl Relation to Subscriber:Self Name:Adele Stahl Payer ID:[id number] (NAIC) Group ID:[id number] Type:Not on file [facility] [id number] [place] [address] [facility] [address] [place] [phone] Advance Directives Documents on File Type Date Recorded Patient King Maker Expl rupesh POL 06/10/2018 12:00 AM * Full Code (Latest Code Status on File) Date Activated Date Inactivated Comments 2023 8:44 AM 10/27/2023 1:15 PM Question Answer Comments Code Status Discussion: Reviewed Preferences * Full Code Date Activated Date Inactivated Comments 10/24/2023 5:25 PM 2023 8:44 AM Question Answer Comments Code Status Discussion: Unable to Assess Preferences, Provider to review later * Full Code Date Activated Date Inactivated Comments 04/18/2020 11:34 AM 04/18/2020 5:43 PM Question Answer Comments Code Status Discussion: Discussed * Full Code Date Activated Date Inactivated Comments 12/09/2016 4:02 PM 12/11/2016 1:32 PM * Full Code Date Activated Date Inactivated Comments 08/03/2013 11:21 AM 08/03/2013 5:35 PM Care Teams Hoop Rolls Operator Relationship Specialty Start Date End Date Tracey [place] [address] PCP - General Physician Stock Associate 01/25/23 Norbert Mcnally [address] [place] [address] Senior Peoplesoft Developer 11/07/13 Oscar Lara MD [address] [place] [address] Ophthalmology Surgery 11/07/13 Grayson Chauhan MD [address] [place] [address] Ophthalmology Surgery 11/07/13
--- OUTSIDE RECORDS SUMMARY | 2024-11-19 09:30 | XMS_ITS | Encounter Summary ---
Author Organization [facility] Address [address] [place] [address] Care Team Providers Care House Cleaner Name Role Phone Mabel Baumann PA-C Primary Care Provider [phone] Encounter Details Date Type Department Care Team (Late st Contact Info) Description 12/28/2018 Consent for Procedure/Treatme nt [facility] Department INFORMED CONSENT RECORD Social History Tobacco [...] on filedocumented in this encounter Care Teams House Cleaner Relationship Specialty Start Date End Date Mabel Baumann PA-C PCP - General Physician Hr Intern 12/29/18 documented as of this encounter
--- OUTSIDE RECORDS SUMMARY | 2024-11-19 09:30 | XMS_ITS | Clinical Summary ---
Author Organization [facility] Address [address] [place] [address] Care Team Providers Care Cable Layer Name Role Phone Mabel Baumann PA-C Primary Care Provider [phone] Source Comments You are receiving this document as you are listed as the primary care provider,follow-up provider, or the patient has been referred to you for consultation.This is in compliance with the Medicare and[facility] EHR Incentive Program,which states Providers who transition their patient to another setting of careor provider of care or refers their patient to another provider of care shouldprovide summary care record for each transition of care or referral. [facility] Allergies No known active allergies Medications acetaminophen (TYLENOL) 500 MG tabletIndication s:Fever,Pain Take 2 Tablets by mouth three times a day. Maximum acetaminophen dose is 4000 mg in 24 hours Indications: Fever, Pain 100 Tablet 11 01/07/20 19 Active calcium carbonate oyster shell (OYSTER SHELL) 500 mg elemental Ca tabletIndication s:Hypocalcemia Take 0.5 Tablets by mouth daily. Indications: Low Amount of Calcium in the Blood 01/09/20 19 Active Multiple Vitamins-Mineral s (CEROVITE SENIOR) TABSIndications: vitamin Take 1 Tablet by mouth daily. Indications: vitamin 01/09/20 19 Active atorvastatin (LIPITOR) 40 MG tabletIndication s:Acute Myocardial Infarction Take 1 Tablet by mouth daily. Indications: Acute Heart Attack 01/09/20 19 Active cholecalciferol (VITAMIN D-[address]) 1000 units tabletIndication s:vitamin Take 1 Tablet by mouth daily. Indications: vitamin 100 Tablet 3 01/09/20 19 Active levothyroxine (SYNTHROID) 50 MCG tabletIndication s:Hypothyroidism Take 1 Tablet by mouth daily. Indications: Underactive Thyroid 01/09/20 Active metoprolol tartrate (LOPRESSOR) 50 MG tabletIndication s:Hypertension Take 1 Tablet by mouth two times a day. Indications: High Blood Pressure Disorder 60 Tablet 2 01/09/20 Active apixaban (ELIQUIS) 5 MG tabletIndication s:Atrial Fibrillation Take 1 Tablet by mouth two times a day. 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 12/15/2018 Overview (12/15/2018): Added automatically from request for surgery [id number] Immunizations Immunization Administration Dates Next Due Influenza, Unspecified Formulation 05/19/2018 Social History Tobacco Use Types Packs/Day Years Used Date Smoking Tobacco: Never Smokeless Tobacco: Never Comments Unknown Sex and Gender Information Value Date Recorded Sex Assigned at Not on file Legal Sex Female 4:36 AM CDT Gender Identity Not on file Sexual Orientation Not on file Last Filed Vital Signs Vital Sign Reading Time Taken Comments Blood Pressure 106/63 01/10/2019 10:50 AM CDT Pulse 99 01/10/2019 10:50 AM CDT Temperature 36.6 C (97.8 F) 01/10/2019 10:50 AM CDT Respiratory Rate 16 01/10/2019 10:50 AM CDT Oxygen Saturation 97% 01/10/2019 10:50 AM CDT Inhaled Oxygen Concentration - - Weight 62.2 kg (137 lb 2 oz) 01/08/2019 6:56 AM CDT Height 156.2 cm (5' 1.5) 01/04/2019 6:18 AM CDT Body Mass Index 25.49 01/04/2019 6:18 AM CDT Plan of Treatment Health Maintenance Due Date Last Done Comments Hep C Screening (Preventive Services) 1945 Adult Preventive Visit 10/26/1963 Zoster/Shingles (2 of 3) 03/12/2008 01/16/2008 Dexa 2010 DTaP/Tdap/Td (2 - Tdap) 07/24/2018 07/24/2008, 05/30 RSV (1 - 1-dose 75+ series) 2020 COVID-19 Vaccine (3 - 2023- season) 2024 10/19/2020, 09/28/2020 Influenza (#1) 2024 06/14/2020, 11/0 03/2019, 05/19/2018, Additional history exists Pneumococcal 50+ Yrs Completed 11/27/2015, 11/19/19 11 HepA Aged Out No longer eligi ble based on patient's age to complete this topic HepB Aged Out No longer eligi ble based on patient's age to complete this topic Hib Aged Out No longer eligi ble based on patient's age to complete this topic IPV (Polio) Aged Out No longer eligi ble based on patient's age to complete this topic MCV4 Aged Out No longer eligi ble based on patient's age to complete this topic Meningococcal B Aged Out No longer el igible based on patient's age to complete this topic Medical Devices Implanted Type Area Senior Sales Operations Analyst Device Identifier Shelf Expiration Date Model / Serial / Lot Bone Shaft Fib 18cm - [id number] Implanted:Qty : 1 on 01/04/2019 by Grayson Kraus MD at [facility] BIOLOGIC Right: FEMUR DISTAL Musculoskeletal Transplant Fnd 08/07/2023 [id number] / [id number] / Bone Chip Canc 30cc - [id number] Implanted:Qty : 1 on 01/04/2019 by Grayson Kraus MD at [facility] BIOLOGIC Right: FEMUR DISTAL Med[employer]onic - Spincal[employer]raft [employer] 05/17/2023 [id number] / [id number] / Diogenes Simplex Radiopaque - [id number] Implanted:Qty : 2 on 12/28/2018 by Grayson Kraus MD at [facility] DEVICE Right: LEG [facility] 01/13/2021 [id number] / / Plt Va-Lcp Crvd Rt 4.5x336 16h - [id number] Implanted:Qty : 1 on 01/04/2019 by Grayson Kraus MD at [facility] DEVICE Right: FEMUR MIDSHAFT DePuy Synthes - Trauma 02.124.4 16 / / Description:LATERAL. Scr Va Lk Sftp Stdr 5.0x20 - [id number] Implanted:Qty : 1 on 01/04/2019 by Grayson Kraus MD at [facility] DEVICE Right: FEMUR MIDSHAFT J&J DePuy Synthes - Trauma 02.231.2 20 / / Description:LATERAL. Scr Va Lk Sftp Stdr 5.0x28 - [id number] Implanted:Qty : 1 on 01/04/2019 by Grayson Kraus MD at [facility] DEVICE Right: FEMUR MIDSHAFT J[employer]J DePuy Synthes - Trauma .231.2 28 / / Description:LATERAL. Scr Va Lk Sftp Stdr 5.0x40 - [id number] Implanted:Qty : 2 on 01/04/2019 by Grayson Kraus MD at [facility] DEVICE Right: FEMUR MIDSHAFT [employer] - Trauma .231.2 40 / / Description:LATERAL Scr Va Lk Sftp Stdr 5.0x38 - [id number] Implanted:Qty : 1 on 01/04/2019 by Grayson Kraus MD at [facility] DEVICE Right: FEMUR MIDSHAFT [employer] - Trauma .231.2 38 / / Description:LATERAL. Scr Va Lk Sftp Stdr 5.0x80 - [id number] Implanted:Qty : 1 on 01/04/2019 by Grayson Kraus MD at [facility] DEVICE Right: FEMUR DISTAL [employer] - Trauma .231.2 80 / / Description:LATERAL. Scr Va Lk Sftp Stdr 5.0x30 - [id number] Implanted:Qty : 1 on 01/04/2019 by Grayson Kraus MD at [facility] DEVICE Right: FEMUR MIDSHAFT J[employer]J [employer] Synthes - Trauma .231.2 30 / / Description:LATERAL. Scr Va Lk Sftp Stdr 5.0x42 - [id number] Implanted:Qty : 1 on 01/04/2019 by Grayson Kraus MD at [facility] DEVICE Right: FEMUR MIDSHAFT [employer]s - Trauma .231.2 42 / / Description:LATERAL. Scr Va Lk Sftp Stdr 5.0x46 - [id number] Implanted:Qty : 1 on 01/04/2019 by Grayson Kraus MD at [facility] DEVICE Right: FEMUR MIDSHAFT [employer]s - Trauma 02.231.2 46 / / Description:LATERAL. Scr Star Lk Sftp 3.5x28 - [id number] Implanted:Qty : 2 on 01/04/2019 by Grayson Kraus MD at [facility] DEVICE Right: FEMUR DISTAL J 212.110 / / Description:MEDIAL. Scr Daniel Sftp Ss 3.5x50 F-Thrd - [id number] Implanted:Qty : 1 on 01/04/2019 by Grayson Kraus MD at [facility] DEVICE Right: FEMUR DISTAL J 204.850 / / Description:MEDIAL. Scr Star Lk Sftp 3.5x60 - [id number] Implanted:Qty : 1 on 01/04/2019 by Grayson Kraus MD at [facility] DEVICE Right: FEMUR DISTAL J 212.124 / / Description:MEDIAL. Plt Prox Hum 3.5x114 6h/5h - [id number] Implanted:Qty : 1 on 01/04/2019 by Grayson Kraus MD at [facility] DEVICE Right: FEMUR DISTAL [employer]ynthes - Trauma 241.903 / / Description:MEDIAL. Scr Daniel Sftp Ss 3.5x46 F-Thrd - [id number] Implanted:Qty : 1 on 01/04/2019 by Grayson Kraus MD at [facility] DEVICE Right: FEMUR DISTAL [employer] - Trauma 204.846 / / Description:MEDIAL. Scr Daniel Sftp Ss 3.5x48 F-Thrd - [id number] Implanted:Qty : 1 on 01/04/2019 by Grayson Kraus MD at [facility] DEVICE Right: FEMUR DISTAL [employer] - Trauma 204.848 / / Description:MEDIAL. Scr Star Lk Sftp 3.5x48 - [id number] Implanted:Qty : 1 on 01/04/2019 by Grayson Kraus MD at [facility] DEVICE Right: FEMUR MIDSHAFT [employer] - Trauma 212.120 / / Description:LATERAL. Scr Star Lk Sftp 3.5x44 - [id number] Implanted:Qty : 1 on 01/04/2019 by Grayson Kraus MD at [facility] DEVICE Right: FEMUR DISTAL [employer] - Trauma 212.134 / / Description:MEDIAL. Advance Directives * Full Code (Latest Code Status on File) Date Activated Date Inactivated Comments 01/04/2019 6:10 AM 01/10/2019 3:28 PM * Full Code Date Activated Date Inactivated Comments 12/28/2018 4:08 PM 12/31/2018 1:47 PM * Full Code Date Activated Date Inactivated Comments 12/28/2018 8:57 AM 12/28/2018 4:08 PM * Full Code Date Activated Date Inactivated Comments 12/28/2018 8:48 AM 12/28/2018 8:57 AM Care Teams Cable Layer Relationship Specialty Start Date End Date Mabel Baumann PA-C PCP - General Physician [place] 12/29/18
[2024-11-19 09:33] VITALS: BP 132/65; PULSE 66; RESP 20; TEMP 36.6; O2SAT 96; BMI 24.6
--- NOTE | 2024-11-19 09:44 | CRLHL7_ITS ---
For Patients: As a result of the Cures Act, medical imaging exams and procedure reports are released immediately into your electronic medical record. You may view this report before your referring provider. If you have questions, please contact your health care provider. INDICATION: Coronary artery disease. Swollen ankles TECHNIQUE: Chest radiograph 1 view COMPARISON: None FINDINGS: The sensitivity and specificity of the exam are moderately limited by the patient`s body habitus. Mediastinum: The mediastinum is normal in appearance. Mild cardiomegaly is noted. There is a left cardiac pacer present with leads in the right atrium and right ventricle. Lung: Both lungs are unremarkable in appearance with small lung volumes. No sign of pleural effusion seen. No pneumothorax is identified. Bone and Soft tissue: Unremarkable for age. IMPRESSION: 1. Mild cardiomegaly is noted. Dictated by Dar White MD @ 11/19/2024 10:45:35 AM Dictated by: Dar White MD @ 11/19/2024 10:45:40 (Electronically Signed)
--- NOTE | 2024-11-19 09:46 | ED.GENADULT ---
HPI - General Adult General Chief complaint: Lower Extremity Swelling Stated complaint: bilateral ankle swelling Time Seen by Provider: 11/19/24 09:29 History of Present Illness HPI narrative: Patient is a pleasant 79-year-old female who presents independently to the ER with complaints of some lower extremity ankle swelling over the last few days. She has not reported increased salt intake, she has had no chest pain, she really does not have any shortness of breath. She states she gets short of breath sometimes with exertion but that is not changed much. She has a history of severe tricuspid valve regurgitation she had a pacemaker placed about a year ago she has coronary artery disease. She is on apixaban. She takes diltiazem and lisinopril. She is not on a diuretic. She does not feel short of breath at night with recumbency of any significance and basically noticed that her pants were tight on her ankles. She knows of no planned for treating her valvular heart disease at this time. Related Data Home Medications ?Medication ?Instructions ?Recorded ?Confirmed apixaban 2.5 mg tablet (Eliquis) 2.5 mg PO BID 03/05/22 03/05/22 apixaban 5 mg tablet (Eliquis) 5 mg PO BID 10/24/23 10/24/23 atorvastatin 40 mg tablet 40 mg PO DAILY 10/24/23 10/24/23 diltiazem HCl 120 mg 120 mg PO DAILY 10/24/23 10/24/23 capsule,extended release 24 hr levothyroxine 75 mcg tablet 75 mcg PO DAILY 10/24/23 10/24/23 lisinopril 5 mg tablet 5 mg PO DAILY 10/24/23 10/24/23 Previous Rx's ?Medication ?Instructions ?Recorded tacrolimus 0.1 % topical ointment 1 applic topical BID #60 grams 04/09/22 (Protopic) furosemide 20 mg tablet (Lasix) 20 mg PO DAILY #3 tabs 11/19/24 Allergies Allergy/AdvReac Type Severity Reaction Status Date / Time No Known Allergies Allergy Verified 11/19/24 09:32 Review of Systems Status of ROS: Reports: 6 or more systems reviewed and unremarkable except as noted in History and below [facility] History Status post total knee replacement ?Z96.659 - Presence of unspecified artificial knee joint (ICD-10) Status post insertion of drug-eluting stent into right coronary artery for coronary artery disease ?Z95.5 - Presence of coronary angioplasty implant and graft (ICD-10) Social History Narrative: alcohol abuse Smoking Status: Never smoker Do you use any of these nicotine containing products: None Non-prescribed substance use: denies use service: No Exam Narrative: Exam Narrative: Objective: Patient's vital signs look within normal limits O2 sat excellent at 96% Alert orient x3 noncyanotic breathing normally no increased effort Chest is clear no rales or wheezing Heart rate and rhythm regular with 2 seconds 2/6 systolic ejection murmur with occasional ectopic beat noted. Abdomen benign soft Extremities showed trace to 1+ edema of the ankles but not the pretibial areas. Neurologic is nonfocal upper extremities good peripheral perfusion noted. Const: Vital Signs, click to edit/add: Vital Signs - 24 hr 11/19/24 09:33 Temperature 97.8 F Pulse Rate [Pulse Oximeter] 66 Respiratory Rate 20 Blood Pressure [Ri ght Upper Arm] 132/65 Pulse Oximetry 96 Oxygen Delivery Me thod Room Air Course Vital Signs Vital signs: Initial Vital Signs Temperature 97.8 F 11/19/24 09:33 Temperature Source Temporal Artery Scan 11/19/24 09:33 Pulse Rate 66 11/19/24 09:33 Pulse Rhythm Regular 11/19/24 09:33 Respiratory Rate 20 11/19/24 09:33 Blood Pressure 132/65 11/19/24 09:33 Blood Pressure Mean 87 11/19/24 09:33 Blood Pressure Position Semi-Fowlers 11/19/24 09:33 Pulse Oximetry 96 11/19/24 09:33 Oxygen Delivery Method Room Air 11/19/24 09:33 Vital Signs Temperature 97.8 F 11/19/24 09:33 Pulse Rate 66 11/19/24 09:33 Respiratory Rate 20 11/19/24 09:33 Blood Pressure 132/65 11/19/24 09:33 Pulse Oximetry 96 11/19/24 09:33 Oxygen Delivery Method Room Air 11/19/24 09:33 Temperature 97.8 F 11/19/24 09:33 Pulse Rate 66 11/19/24 09:33 Respiratory Rate 20 11/19/24 09:33 Blood Pressure 132/65 11/19/24 09:33 Pulse Oximetry 96 11/19/24 09:33 Oxygen Delivery Method Room Air 11/19/24 09:33 Medications Administered Medications: Discontinued Medications Generic Name Dose Route Start Last Admin Trade Name Pamela PRN Reason Stop Dose Admin Furosemide 40 mg 11/19/24 09:44 11/19/24 10:22 Furosemide 40 Mg Tablet PO 11/19/24 09:45 40 mg ONCE ONE Administration Medical Decision Making MDM Narrative Medical decision making narrative: [age] year white female with history of severe tricuspid regurgitation and coronary disease presents with increased increase fluid retention in her ankles. No significant breathing issues. She has had no chest pain. I think at this time doing some chemistry work as well as checking a troponin and giving her oral Lasix would be appropriate. I am suspect suspecting that may be a couple of days a Lasix would be helpful for her to reduce her fluid, watch her salt intake. Will check her lab studies. I have her follow up with primary care in the next couple of days. Will review the above-mentioned studies and disposition pending findings. Addendum 11:31 a.m.. The patient's EKG shows a paced rhythm. Her laboratory studies look reassuring. Her vital signs are reassuring. She did get some Lasix. She can do 20 mg of Lasix daily for the next 3 days. This was faxed into her pharmacy. Recommend she recheck with regular doctor in next few days as well. A point of care troponin was negative. She was pleased with the evaluation. Lab Data Labs: Lab Results 11/19/24 11/19/24 11/19/24 Range/Units 09:44 10:06 11:13 WBC 5.14 (4.50-11.00) K/uL RBC 3.36 L (4.00-5.20) m/uL Hgb 11.8 L (12.0-16.0) gm/dL Hct 35.6 (33.0-51.0) % MCV 106 H (80-100) fL MCH 35 H (26-34) pg MCHC 33 (32-36) gm/dL RDW Coeff of Mely 13.4 (11.5-15.5) % Plt Count 283 (140-440) K/uL Neut % (Auto) 68.4 (42.0-72.0) % Lymph % (Auto) 17.7 L (20-44) % Merrick % (Auto) 11.7 H (0.0-11.0) % Eos % (Auto) 1.6 (0.0-7.0) % Baso % (Auto) 0.2 (0.0-3.0) % Neut # (Auto) 3.52 (1.7-7.0) K/uL Lymph # (Auto) 0.90 (0.90-2.90) K/uL Merrick # (Auto) 0.60 (0.00-0.90) K/UL Eos # (Auto) 0.08 (0.00-0.50) K/uL Baso # (Auto) 0.01 (0.00-0.30) K/uL Abs Immat Gran (auto) 0.02 (0.00-0.30) K/uL Imm/Tot Granulo (auto) 0.4 % Sodium 131 L (135-149) mmol/L Potassium 5.3 H (3.6-5.1) mmol/L Chloride 99 (96-114) mmol/L Carbon Dioxide 27 (20-32) mmol/L Anion Gap 5 L (7-15) mEq/L BUN 9 (7-30) mg/dL Creatinine 0.6 (0.5-1.5) mg/dL Estimated Creat Clear 32.77 Estimated GFR 91 ml/min Glucose 95 (60-115) mg/dL Calcium 9.1 (8.4-10.6) mg/dL NT-Pro-B Natriuret Pep 2230 pg/mL POC Troponin I 0.01 (0.01-0.04) ng/ml Discharge Plan Discharge Clinical Impression: Bilateral edema of lower extremity, Coronary artery disease, Tricuspid regurgitation Patient Disposition: Home, Self-Care Condition: Stable Additional Instructions: Diuretic pill starting tomorrow once in the morning for 3 days. Recheck with regular doctor next few days. Return if problems or concerns. Activity Level: Light activity Discharge Diet: 2 gm Sodium Prescriptions: New furosemide [Lasix] 20 mg tablet 20 mg PO DAILY Qty: 3 2RF No Action Eliquis 2.5 mg tablet 2.5 mg PO BID atorvastatin 40 mg tablet 40 mg PO DAILY levothyroxine 75 mcg tablet 75 mcg PO DAILY diltiazem HCl 120 mg capsule,extended release 24hr 120 mg PO DAILY lisinopril 5 mg tablet 5 mg PO DAILY Eliquis 5 mg tablet 5 mg PO BID tacrolimus [Protopic] 0.1 % ointment 1 applic topical BID Qty: 60 0RF Follow Up/Referrals: Tracey Amador PA-C [Primary Care Provider] - Stand Alone Forms: [employer] Info Instructions
--- OUTSIDE RECORDS SUMMARY | 2024-11-19 09:59 | XMS_ITS ---
Author Organization [facility] Care Team Providers Care Distillery Laborer Name Role Phone Le Emerson Unavailable Unavailable Ed Leggett Unavailable Unavailable Detert, Tarsha Unavailable Unavailable Allergies and adverse reactions No Known Allergies Care Team Name Role Address Phone Organization Dates Ed Leggett PCP [address], [address], [place], [place], [facility], [place] (Office): [facility] 09/21/2014 - 09/26/2014 Le Emerson Attending Physician Geneena [address] [place] [address] [address], [place], [address] [place] [address] (Office): : [facility] 09/21/2014 - 09/26/2014 Tarsha Esteban Attending Physician [address], [address], [facility] 09/21/2014 - 09/26/2014 Immunizations Immunization Status Vaccine Details Vaccine Code CodeSystem Date Notes Pneumovax Dose 1 completed cre ated date: 09/20/2014 administere d date: 11/18/2010 TB 2 Step Mantoux Skin Test completed tuberculin skin test; unspecified formulation lotNumber: [id number] expiry: 12/14/2015 Mfg: [employer] Given 0.1 [...] Current Smoking Status Tobacco smoking consumption unknown [id number] SNOMED CT Sex Assigned At Female 1945 38316-1 [facility] Vital Signs Code Code System Vitals Name Values and Units Timing Information 29879-3 [facility] Pain Level Value=6.0 09/26/2014 9279-1 [facility] Respiratory Rate Value=12.0 Units=/m in 09/22/2014 8462-4 [facility] Blood Pressure-Diastolic Value=70 Un its=mmHg 09/22/2014 8480-6 [facility] Blood Pressure-Systolic Okljf=429 Un its=mmHg 09/22/2014 8310-5 [facility] Body Temperature Value=97.8 Units= F 09/22/2014 8867-4 [facility] Heart rate Value=74.0 Units=/min 02/2015 30209-4 [facility] O2 % dC Oximetry Value=98.0 Units= % 09/22/2014 72372-4 LOINC Weight Nkcjn=983.5 Units=Lbs 02/2015 8302-2 LOINC Height Value=62.0 Units=Inches 09/22/2014
--- OUTSIDE RECORDS SUMMARY | 2024-11-19 09:59 | XMS_ITS | Encounter Summary ---
Author Organization [facility] Address [address] [place] [address] Care Team Providers Care Fuel Verification Technician Name Role Phone Mabel Baumann PA-C Primary Care Provider [phone] Encounter Details Date Type Department Care Team (Late st Contact Info) Description 12/28/2018 Consent for Procedure/Treatme nt [facility] Department INFORMED CONSENT RECORD Social History Tobacco [...] on filedocumented in this encounter Care Teams Fuel Verification Technician Relationship Specialty Start Date End Date Mabel Baumann PA-C PCP - General Physician Recreation Teacher 12/29/18 documented as of this encounter
--- OUTSIDE RECORDS SUMMARY | 2024-11-19 09:59 | XMS_ITS | Encounter Summary ---
Author Organization [facility] Address [address] [place] [address] Care Team Providers Care Ferryboat Deckhand Name Role Phone Mabel Baumann PA-C Primary Care Provider Encounter Details Date Type Department Care Team (Late st Contact Info) Description 09/18/2014 Outside Hospital External to External, [place] [address] OPERATIVE REPORT Social History Tobacco Use Types [...] on filedocumented in this encounter Care Teams Ferryboat Deckhand Relationship Specialty Start Date End Date Mabel Baumann PA-C PCP - General Physician Revenue Settlements Administrator 12/29/18 documented as of this encounter
--- OUTSIDE RECORDS SUMMARY | 2024-11-19 09:59 | XMS_ITS | Encounter Summary ---
Author Organization [facility] Address [address] [place] [address] Care Team Providers Care Force Adjustment Supervisor Name Role Phone Mabel Baumann PA-C Primary Care Provider [phone] Encounter Details Date Type Department Care Team (Late st Contact Info) Description 01/04/2019 Consent for Procedure/Treatme nt [facility] Department INFORMED CONSENT RECORD Social History Tobacco [...] on filedocumented in this encounter Care Teams Force Adjustment Supervisor Relationship Specialty Start Date End Date Mabel Baumann PA-C PCP - General Physician Paving Supervisor 12/29/18 documented as of this encounter
--- OUTSIDE RECORDS SUMMARY | 2024-11-19 09:59 | XMS_ITS | Clinical Summary ---
Author Organization [facility] Address [address] [place] [address] Care Team Providers Care Printed Circuit Designer Name Role Phone Mabel Baumann PA-C Primary Care Provider [phone] Source Comments You are receiving this document as you are listed as the primary care provider,follow-up provider, or the patient has been referred to you for consultation.This is in compliance with the Medicare and[facility] Hospital[facility] EHR Incentive Program,which states Providers who transition their patient to another setting of careor provider of care or refers their patient to another provider of care shouldprovide summary care record for each transition of care or referral. 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 BIOLOGIC Right: FEMUR DISTAL Musculoskeletal Transplant Fnd 08/07/2023 [id number] / [id number] / Bone Chip Canc 30cc - [id number] Implanted:Qty : 1 on 01/04/2019 by Grayson Kraus MD at [facility] BIOLOGIC Right: FEMUR DISTAL Medtronic - SpincalGraft Tech 05/17/2023 [id number] / [id number] / Diogenes Simplex Radiopaque - [id number] Implanted:Qty : 2 on 12/28/2018 by Grayson Kraus MD at [facility] DEVICE Right: LEG [employer] 01/13/2021 6191-1-0 01 / / Plt Va-Lcp Crvd Rt 4.5x336 16h - [id number] Implanted:Qty : 1 on 01/04/2019 by Grayson Kraus MD at [facility] DEVICE Right: FEMUR MIDSHAFT DePuy Synthes - Trauma 02.124.4 16 / / Description:LATERAL. Scr Va Lk Sftp Stdr 5.0x20 - [id number] Implanted:Qty : 1 on 01/04/2019 by Grayson Kraus MD at [facility] DEVICE Right: FEMUR MIDSHAFT J&J DePuy Synthes - Trauma 02.231.2 20 / / Description:LATERAL. Scr Va Lk Sftp Stdr 5.0x28 - [id number] Implanted:Qty : 1 on 01/04/2019 by Grayson Kraus MD at [facility] DEVICE Right: FEMUR MIDSHAFT J&J DePuy Synthes - Trauma .231.2 28 / / Description:LATERAL. Scr Va Lk Sftp Stdr 5.0x40 - [id number] Implanted:Qty : 2 on 01/04/2019 by Grayson Kraus MD at [facility] DEVICE Right: FEMUR MIDSHAFT DePuy Synthes - Trauma .231.2 40 / / Description:LATERAL Scr Va Lk Sftp Stdr 5.0x38 - [id number] Implanted:Qty : 1 on 01/04/2019 by Grayson Kraus MD at [facility] DEVICE Right: FEMUR MIDSHAFT DePuy Synthes - Trauma .231.2 38 / / Description:LATERAL. Scr Va Lk Sftp Stdr 5.0x80 - [id number] Implanted:Qty : 1 on 01/04/2019 by Grayson Kraus MD at [facility] DEVICE Right: FEMUR DISTAL DePuy Synthes - Trauma .231.2 80 / / Description:LATERAL. Scr Va Lk Sftp Stdr 5.0x30 - [id number] Implanted:Qty : 1 on 01/04/2019 by Grayson Kraus MD at [facility] DEVICE Right: FEMUR MIDSHAFT J&J DePuy Synthes - Trauma .231.2 30 / / Description:LATERAL. Scr Va Lk Sftp Stdr 5.0x42 - [id number] Implanted:Qty : 1 on 01/04/2019 by Grayson Kraus MD at [facility] DEVICE Right: FEMUR MIDSHAFT DePuy Synthes - Trauma .231.2 42 / / Description:LATERAL. Scr Va Lk Sftp Stdr 5.0x46 - [id number] Implanted:Qty : 1 on 01/04/2019 by Grayson Kraus MD at [facility] DEVICE Right: FEMUR MIDSHAFT DePuy Synthes - Trauma 02.231.2 46 / / Description:LATERAL. Scr Star Lk Sftp 3.5x28 - [id number] Implanted:Qty : 2 on 01/04/2019 by Grayson Kraus MD at [facility] DEVICE Right: FEMUR DISTAL J 212.110 / / Description:MEDIAL. Scr Daniel Sftp Ss 3.5x50 F-Thrd - [id number] Implanted:Qty : 1 on 01/04/2019 by Grayson Kraus MD at [facility] DEVICE Right: FEMUR DISTAL J 204.850 / / Description:MEDIAL. Scr Star Lk Sftp 3.5x60 - [id number] Implanted:Qty : 1 on 01/04/2019 by Grayson Kraus MD at [facility] DEVICE Right: FEMUR DISTAL J 212.124 / / Description:MEDIAL. Plt Prox Hum 3.5x114 6h/5h - [id number] Implanted:Qty : 1 on 01/04/2019 by Grayson Kraus MD at [facility] DEVICE Right: FEMUR DISTAL DePuy Synthes - Trauma 241.903 / / Description:MEDIAL. Scr Daniel Sftp Ss 3.5x46 F-Thrd - [id number] Implanted:Qty : 1 on 01/04/2019 by Grayson Kraus MD at [facility] DEVICE Right: FEMUR DISTAL DePuy Synthes - Trauma 204.846 / / Description:MEDIAL. Scr Daniel Sftp Ss 3.5x48 F-Thrd - [id number] Implanted:Qty : 1 on 01/04/2019 by Grayson Kraus MD at [facility] DEVICE Right: FEMUR DISTAL DePuy Synthes - Trauma 204.848 / / Description:MEDIAL. Scr Star Lk Sftp 3.5x48 - [id number] Implanted:Qty : 1 on 01/04/2019 by Grayson Kraus MD at [facility] DEVICE Right: FEMUR MIDSHAFT DePuy Synthes - Trauma 212.120 / / Description:LATERAL. Scr Star Lk Sftp 3.5x44 - [id number] Implanted:Qty : 1 on 01/04/2019 by Grayson Kraus MD at [facility] DEVICE Right: FEMUR DISTAL DePuy Synthes - [...] 8:48 AM 12/28/2018 8:57 AM Care Teams Printed Circuit Designer Relationship Specialty Start Date End Date Mabel Baumann PA-C PCP - General Physician Transport Nurse 12/29/18
--- OUTSIDE RECORDS SUMMARY | 2024-11-19 10:00 | XMS_ITS | Clinical Summary ---
Author Organization [facility] Address [address] [place] [address] Care Team Providers Care Home Teaching Grades 7 And 8 Teacher Name Role Phone Dali Norbert Ware Unavailable [phone] Oscar Lara MD Unavailable [phone] Grayson Chauhan MD Unavailable Tracey Amador Primary Care Provider [phone] Allergies Active Allergy Reactions Criticality Noted Date [...] T12 vertebra, initial encounter (HC) Inhale 1 [place] into affected nostril(s) once daily. Alternating nostrils [...] Department Care Team Description 11/16/2024 Nurse Triage [facility] [address] [place] [address] Tracey Amador PA Ankle Pain/problem (Bilateral Ankle Edema); Breathing Problem (SOB with exertion) 11/08/2024 Refill [facility] [address] [place] [address] Tracey Amador PA Refill Request (Nitroglycerin) 11/07/2024 12:47 PM CDT - 11/07/2024 11:59 PM CDT Hospital Encounter [facility] [address] [place] [address] Tracey Amador PA Compression fracture of L3 lumbar vertebra, closed, initial encounter (HC); Compression fracture of T12 vertebra, initial encounter (HC) 11/07/2024 12:46 PM CDT Hospital Encounter [facility] Pacemaker MRI/CT [address] [place] [address] 11/07/2024 Telephone [facility] [address] [place] [address] Tracey Amador PA Results 11/06/2024 10:30 AM CDT Ancillary Procedure [facility] [address] [place] [address] 11/06/2024 9:55 AM CDT Office Visit [facility] [address] [place] [address] Tracey Amador PA Back Pain (Lower back pain. Sx started about a month ago. When moving getting an extreme pain. With some Hip pain, some radiated pain that stays in upper legs. Increased Weakness. No falls or Jarring) 11/06/2024 Telephone [facility] [address] [facility] [address] [place] [address] Shyann Guthrie RN Device Check 11/06/2024 Travel 11/03/2024 Telephone [facility] [address] [place] [address] Tracey Amador PA Questions (back pain) 10/16/2024 Nurse Triage [facility] [address] [place] [address] Tracey Amador PA Back Pain 10/04/[address] [address] Tracey Amador PA Refill Request (Lisinopril) 09/01/2024 11:10 AM INFORMATION OFFICER Office Visit [address] [address] Tracey Amador PA Medicare ANNUAL (subsequent) Visit (78 yrs ) 09/01/2024 Travel 08/23/2024 Refill [facility] [address] [place] [address] Tracey Amador PA Refill Request (Diltiazem Cd) 08/23/2024 Refill [facility] [address] [facility] [place] [address] Tracey Amador PA Refill Request (Atorvastatin) from Last 3 Months Immunizations Immunization Administration Dates Next Due AMB INFLUENZA IIV3 (AGE 65+ YRS) PF (Flu Clinic Only) 05/19/2018 COVID-19 vaccine (Silicon Genesis-Bio NTech 30mcg/0.3mL) 12YO+ LUIZA-SUCROSE PF, MDV 04/09/2022 [...] 69 Osteoporosis Brother 2 Heart Disease Father [place] at 49 Cancer-colon Maternal Grandmother Heart Disease [...] on file Legal Sex Female 5:24 AM INFORMATION OFFICER Gender Identity Not on file Sexual Orientation [...] 36.4 C (97.6 F) 09/01/2024 11:19 AM INFORMATION OFFICER Respiratory Rate 14 10/27/2023 7:58 AM CDT Oxygen Saturation 98% 11/06/2024 10:02 AM CDT Inhaled Oxygen Concentration - - Weight 57.6 kg (127 lb) 11/06/2024 10:02 AM CDT Height 156 cm (5' 1.42) 09/01/2024 11:19 AM INFORMATION OFFICER Body Mass Index 23.67 09/01/2024 11:19 AM INFORMATION OFFICER Plan of Treatment Upcoming Encounters Date Type Department Care Team (Late st Contact Info) Description 01/02/2025 1:30 PM CDT Office Visit [facility] [address] [place] [phone] Ed Bowie MD [facility] [address] [place] [address] 01/04/2025 10:00 AM CDT Office Visit [facility] [address] [place] [address] Albert Marshall MD [address] [place] [address] 02/20/2025 3:00 PM CDT Cardiac Device Check [facility] [address] [place] [phone] Health Maintenance Due Date Last Done Comments [...] history exists Medical Devices Implanted Type Area Account Resolution Analyst Device Identifier Shelf Expiration Date Model / Serial / Lot Log [id number] - Marlena Mta3uo Lens Iol - 1 - Lens Iol 13.5 [id number] Surgical Implanted:Qty: 1 on 08/03/[address] [facility] Right: Eye [employer] 09/15/2017 [id number] / [id number] / Procedures Procedure Name Priority Date/Time [...] REFLEX MEASURED LDL Routine 09/01/2024 12:06 PM INFORMATION OFFICER ASHD (arteriosclerotic heart disease) TSH Routine 09/01/2024 12:06 PM INFORMATION OFFICER Other specified hypothyroidism BASIC METABOLIC PANEL Routine 09/01/2024 12:06 PM INFORMATION OFFICER Hypertension ANTI HCV Routine 02/02/2020 9:32 AM [...] cyst. Multiple tiny gallstones. Procedure Note Maverick Gurber MD, PhD - 11/07/2024 For Patients: As [...] degenerative grade 1-2 anterolisthesis of L4 on Q2ptuzrpmh approximately 9 mm. Compared to the previous [...] narrowing. Potential impingement of the exiting left [id number] root Dictated by Maverick Gruber MD @ [...] W REFLEX MEASURED LDL (09/01/2024 12:06 PM INFORMATION OFFICER) CHOLESTEROL, TOTAL 166 <200 mg/dL [facility] [...] of LDL-C. Jamil BRANTLEY et al. OLIVERIO. 2013;310(51): 0046-7953 (http://education.Latest Medical/faq/TCG565) CHOL/HDLC RATIO 1.8 <5.0 (calc) [facility] NON HDL CHOLESTEROL 76 <130 mg/dL (calc) [facility] Comment: For patients with diabetes plus 1 major ASCVD risk factor, treating to a non-HDL-C goal of <100 mg/dL (LDL-C of <70 mg/dL) is considered a therapeutic option. Blood BLOOD SPECIMEN / Unknown 09/01/2024 12:06 PM INFORMATION OFFICER 09/01/2024 12:06 PM INFORMATION OFFICER Tracey TRAN CHEMISTRY Final Res ult [employer] [facility] [address] [place] [address], [facility] [address] [place] [address] * TSH (09/01/2024 12:06 PM INFORMATION OFFICER) TSH 0.77 0.40 - 4.50 mIU/L [facility] Blood BLOOD SPECIMEN / Unknown 09/01/2024 12:06 PM INFORMATION OFFICER 09/01/2024 12:06 PM INFORMATION OFFICER us Tracey TRAN CHEMISTRY Final Res ult [facility] [address] [place] [address], [place] [phone] [facility] [address] [place] [address] * (ABNORMAL) BASIC METABOLIC PANEL (09/01/2024 12:06 PM INFORMATION OFFICER) [facility] GLUCOSE 93 65 - 99 mg/dL [facility] [...] BLOOD SPECIMEN / Unknown 09/01/2024 12:06 PM INFORMATION OFFICER 09/01/2024 12:06 PM INFORMATION OFFICER Tracey TRAN CHEMISTRY Final Res ult [employer] [facility] [address] [place] [address], [place] [phone] [facility] [address] [place] [address] * ANTI HCV (02/02/2020 9:32 AM CDT) HEPATITIS C ANTIBODY Non-React kaylynn Non-React kaylynn 02/02/2020 6:23 PM CDT [facility] Comment:Antibodies to HCV no t detected; does not exclude the possibility of exposure to HCV. Blood BLOOD SPECIMEN / Unknown Venipuncture / Unknown 02/02/2020 9:32 AM CDT 02/02/2020 9:32 AM CDT us Mabel TRAN SEND OUTS Final Resu lt [facility] [address] [place] [address], * XR DXA BONE DENSITY 2 SITES AXIAL (12/21/2017 3:34 PM CDT) Anatomical Region Laterality Modality Spine, HIPS, HIPL, HIPR Other Mabel TRAN DEXA Final Resu lt from Last 3 Months or Most Recently Relevant to Health Maintenance Insurance MEDICARE PART A HB ONLY [facility] Member Subscriber Plan / Payer (Ef fective 2023-Present) Name:Adele Stahl Relation to Subscriber:Self Name:Adele Stahl Payer ID:[id number] (NAIC) Group ID:[id number] Type:Not on file Address: [facility] [id number] [address] [place] [address] [facility] [address] [place] [phone] Advance Directives Documents on File Type Date Recorded Patient Color Depositing Machine Tender Expl rupesh POL 06/10/2018 12:00 AM * [...] 11:21 AM 08/03/2013 5:35 PM Care Teams Home Teaching Grades 7 And 8 Teacher Relationship Specialty Start Date End Date Tracey Amador PA [place] [address] PCP - General Physician Flatwork Tier 01/25/23 Norbert Mcnally [address] [place] [address] Carbonator 11/07/13 Oscar Lara MD [address] [place] [address] Ophthalmology Surgery 11/07/13 Grayson Chauhan MD [address] [place] [address] Ophthalmology Surgery 11/07/13
--- OUTSIDE RECORDS SUMMARY | 2024-11-19 10:00 | XMS_ITS | Encounter Summary ---
Author Organization [facility] Address [address] [place] [address] Care Team Providers Care Director Hris Name Role Phone Mabel Baumann PA-C Primary Care Provider [phone] Encounter Details Date Type Department Care Team (Late st Contact Info) Description 12/09/2018 Correspondence External to External, [place] [address] IMPLANTS Social History Tobacco Use Types Packs/Day [...] on filedocumented in this encounter Care Teams Director Hris Relationship Specialty Start Date End Date Mabel Baumann PA-C PCP - General Physician Design Transferrer 12/29/18 documented as of this encounter
[2024-11-19 10:11] LABS: Basophils Percent Auto 0.2 % (0.0-3.0); Eosinophils Percent Auto 1.6 % (0.0-7.0); Hematocrit 35.6 % (33.0-51.0); Hemoglobin* 11.8 gm/dL (12.0-16.0); Immature Granulocytes Pct Auto 0.4 %; Lymphocytes Percent Auto 17.7 % (20-44); Mean Corpuscular HGB Conc 33 gm/dL (32-36); Mean Corpuscular Hemoglobin 35 pg (26-34); Mean Corpuscular Volume 106 fL (80-100); Monocytes Percent Auto 11.7 % (0.0-11.0); Neutrophils Percent Auto 68.4 % (42.0-72.0); Platelet Count* 283 K/uL (140-440); RDW Coefficient of Variation % 13.4 % (11.5-15.5); Red Blood Count 3.36 m/uL (4.00-5.20); White Blood Count* 5.14 K/uL (4.50-11.00)
[2024-11-19 10:12] LABS: Basophils Absolute Auto 0.01 K/uL (0.00-0.30); Eosinophils Absolute Auto 0.08 K/uL (0.00-0.50); Immature Granulocytes Abs Auto 0.02 K/uL (0.00-0.30); Neutrophils Absolute Auto 3.52 K/uL (1.7-7.0)
[2024-11-19 10:14] LABS: Slide Review Reflex No
[2024-11-19] MEDS: FUROSEMIDE 40 MG TABLET PO (10:22)
[2024-11-19 10:23] LABS: Chloride* 99 mmol/L (96-114); Sodium* 131 mmol/L (135-149)
[2024-11-19 10:24] LABS: Potassium* 5.3 mmol/L (3.6-5.1)
[2024-11-19 10:26] LABS: Blood Urea Nitrogen* 9 mg/dL (7-30); Creatinine* 0.6 mg/dL (0.5-1.5); Est. Creatinine Clearance* 32.77; Estimated Glomerular Filt Rate 91 ml/min
[2024-11-19 10:27] LABS: Anion Gap 5 mEq/L (7-15); Calcium* 9.1 mg/dL (8.4-10.6); Carbon Dioxide* 27 mmol/L (20-32); Glucose* 95 mg/dL (60-115)
[2024-11-19 10:31] LABS: Troponin, Point-of-Care* 0.01 ng/ml (0.01-0.04)
[2024-11-19 12:01] LABS: NT Pro B Type NatriureticPept* 2230 pg/mL
== END 2024-11-19 11:37 | disposition home or self-care (01) ==
PROVIDERS: Emergency Provider Family Medicine; PCP Student in an Organized Health Care Education/Training Program
DX: R60.9 Edema, unspecified (principal); I25.10 Atherosclerotic heart disease of native coronary artery without angina pectoris; I07.1 Rheumatic tricuspid insufficiency
CPT/HCPCS: 36415; 71045; 80048; 83880; 84484; 85025; 99284; A9270

== ENCOUNTER 2025-02-08 07:24 | Outpatient (RCR) | payer BC, SELFPAY | END 2025-06-08 23:59 | disposition home or self-care (01) | PROVIDERS: PCP Student in an Organized Health Care Education/Training Program; Visit Provider Family Medicine | DX: S22.080D Wedge compression fracture of T11-T12 vertebra, subsequent encounter for fracture with routine healing (principal); M47.816 Spondylosis without myelopathy or radiculopathy, lumbar region; M54.16 Radiculopathy, lumbar region; M17.12 Unilateral primary osteoarthritis, left knee; Z51.89 Encounter for other specified aftercare ==